=== PATIENT | male | born 1945 | race Caucasian/White ===

== ENCOUNTER → 2016-09-17 | Outpatient (CLI) | payer MEDICARE ==
[~2016-09-17] MED LIST: ALDACTONE 25MG25 MG PO; ASPIR 8181 MG PO; CALCIUM 600 MG1 EACH PO; CIALIS5 MG PO; FLEXERIL 10 MG10 MG PO; NITROSTAT0.4 MG SL; PROTONIX40 MG PO; TOPROL XL25 MG PO; ZOCOR20 MG PO; ZYLOPRIM 100 M100 MG PO
== END ==
LOC: RAD 13:59
DX: M25.552 Pain in left hip (principal); M25.562 Pain in left knee; M79.605 Pain in left leg
CPT/HCPCS: 73502; 73564

== ENCOUNTER 2016-09-18 12:18 | Emergency (ER) | payer MEDICARE | END 2016-09-18 13:35 | disposition home or self-care (01) | LOC: ER1 12:18 | DX: S61.411A Laceration without foreign body of right hand, initial encounter (principal); I10 Essential (primary) hypertension; M10.9 Gout, unspecified; W25.XXXA Contact with sharp glass, initial encounter; Y92.89 Other specified places as the place of occurrence of the external cause; Z79.82 Long term (current) use of aspirin; Z79.899 Other long term (current) drug therapy | CPT/HCPCS: 12002; 99282 ==

== ENCOUNTER → 2016-12-18 | Outpatient (CLI) | payer MEDICARE | LOC: RAD 13:51 | DX: M13.871 Other specified arthritis, right ankle and foot (principal); M13.862 Other specified arthritis, left knee; M13.852 Other specified arthritis, left hip | CPT/HCPCS: 73610 ==

== ENCOUNTER → 2021-07-05 | Outpatient (CLI) | payer MEDICARE ==
[~2021-07-05] VITALS: Ht 182.9 cm; Wt 81.6 kg
[~2021-07-05] MED LIST changes: +METAMUCIL PACK3.4 GM PO; +NORCO 5-325 TA1 EACH PO; +NORVASC2.5 MG PO; +VOLTAREN GEL TOP
== END ==
LOC: EROP 11:14
DX: Z23 Encounter for immunization (principal); U07.1 COVID-19
CPT/HCPCS: 96365

== ENCOUNTER → 2021-07-31 | Outpatient (CLI) | payer MEDICARE | LOC: EXRD 07-29 08:14 | DX: R10.13 Epigastric pain (principal); N28.1 Cyst of kidney, acquired | CPT/HCPCS: 76705 ==

== ENCOUNTER → 2021-09-26 | Outpatient (CLI) | payer MEDICARE | LOC: NM 14:11 | DX: R10.11 Right upper quadrant pain (principal); R93.2 Abnormal findings on diagnostic imaging of liver and biliary tract | CPT/HCPCS: 78227; A9537; J2805 ==

== ENCOUNTER → 2021-10-16 | Outpatient (CLI) | payer MEDICARE ==
[~2021-10-16] MED LIST changes: +CALCIUM/VIT D; +COLACE100 MG PO; +FLECAINIDE ACET50 MG PO; -NORVASC2.5 MG PO; +NORVASC5 MG PO; +PERCOCET 5-3251 EACH PO; +TOLTERODINE TART2 MG PO
== END ==
LOC: OPSV2 10-09 08:00
PROVIDERS: Surgery
DX: Z01.818 Encounter for other preprocedural examination (principal); I10 Essential (primary) hypertension
CPT/HCPCS: 80048; 93005

== ENCOUNTER → 2021-10-20 | Day surgery (SDC) | payer MEDICARE | END | disposition home or self-care (01) | LOC: OR 06:24 | PROVIDERS: Surgery | PROC: 0FT44ZZ Resection of Gallbladder, Percutaneous Endoscopic Approach (ICD-10-PCS; principal; 2021-10-20 07:30) | DX: K81.1 Chronic cholecystitis (principal); K66.0 Peritoneal adhesions (postprocedural) (postinfection); I25.10 Atherosclerotic heart disease of native coronary artery without angina pectoris; I12.9 Hypertensive chronic kidney disease with stage 1 through stage 4 chronic kidney disease, or unspecified chronic kidney disease; N18.9 Chronic kidney disease, unspecified; E78.5 Hyperlipidemia, unspecified; M10.9 Gout, unspecified; K21.9 Gastro-esophageal reflux disease without esophagitis; M19.90 Unspecified osteoarthritis, unspecified site; E78.00 Pure hypercholesterolemia, unspecified; Z20.822 Contact with and (suspected) exposure to COVID-19; Z79.899 Other long term (current) drug therapy; Z79.82 Long term (current) use of aspirin; Z87.891 Personal history of nicotine dependence; Z88.5 Allergy status to narcotic agent | CPT/HCPCS: J0690; J1100; J1170; J2001; J2405; J2704; J3010; J7030; J7120 ==